=== PATIENT | male | born 1990 | race African-American/Black ===

== ENCOUNTER 2020-06-30 18:52 | Inpatient (IN) | payer MEDICAID ==
[~2020-06-30] VITALS: Ht 167.6 cm; Wt 71.7 kg
[2020-06-30] MEDS ORDERED: MORPHINE SULFATE 4 MG/ML CPJ (NOT FOR IM USE) IV STA (19:01)
[2020-06-30] MEDS ORDERED: ONDANSETRON HCL 4MG/2ML INJ IV STA (19:01)
[2020-06-30] MEDS ORDERED: SODIUM CHLORIDE 0.9% 1,000 ML IV ONE ×2 (19:15→19:45)
[2020-06-30] MEDS ORDERED: METOCLOPRAMIDE HCL 10MG/2ML VIAL IV ONE (19:45)
[2020-06-30] MEDS ORDERED: LORAZEPAM 2MG/ML CPJ IV ONE (20:00)
[2020-06-30] MEDS ORDERED: ONDANSETRON HCL 4MG/2ML INJ IV ONE (20:00)
[2020-06-30 20:25] LABS: BASOPHILS % 0.7 % (0.0-2.0); EOSINOPHILS % 0.5 % (0.0-5.0); HEMATOCRIT. 33.7 % (42.0-52.0); HEMOGLOBIN. 11.2 g/dL (14.0-18.0); LYMPHOCYTES % 18.2 % (20.0-50.0); MEAN CORPUSCULAR HEMOGLOBIN 28.1 pg (28.0-32.0); MEAN CORPUSCULAR VOLUME 84.9 fL (80.0-94.0); MEAN PLATELET VOLUME 9.7 fl (7.4-10.4); MONOCYTES % 5.5 % (2.0-8.0); NEUTROPHILS % 75.1 % (40.0-76.0); PLATELET 304 x1000/uL (130-400); RED BLOOD CELL COUNT 3.97 mill/uL (4.7-6.1); RED CELL DISTRIBUTION WIDTH 14.2 % (11.6-14.6)
[2020-06-30 20:31] LABS: CHLORIDE 109 mEq/L (98-107)
[2020-06-30 20:35] LABS: INR 0.9
[2020-06-30 20:38] LABS: ETHANOL BLOOD < 10 mg/dL
[2020-06-30 20:43] LABS: BETA HYDROXYBUTYRATE 0.5 mMol/L (0.0-0.3)
[2020-06-30] MEDS ORDERED: LABETALOL 5MG/ML SYR 20 MG/4 ML SYRINGE IV ONE ×2 (20:45→22:00)
[2020-06-30] MEDS ORDERED: MAGNESIUM/ALUMINUM HYDROXIDE/SIMETHICONE 30ML UDC PO PRN (21:45)
[2020-06-30] MEDS ORDERED: DOCUSATE SODIUM 100MG CAPSULE PO PRN (21:45)
[2020-06-30] MEDS ORDERED: KETOROLAC 15MG/ML VIAL IV PRN (21:45)
[2020-06-30] MEDS ORDERED: NITROGLYCERIN 0.4MG TABLET SL SL PRN (21:45)
[2020-06-30] MEDS ORDERED: ONDANSETRON HCL 4MG/2ML INJ IV PRN (21:45)
[2020-06-30] MEDS ORDERED: IPRATROPIUM/ALBUTEROL 0.5-3(2.5)MG/3ML NEB NEB PRN (21:45)
[2020-06-30] MEDS ORDERED: DEXTROSE 50% WATER 50ML SYRINGE IV PRN (21:45)
[2020-06-30] MEDS ORDERED: ZOLPIDEM TARTRATE 5MG TABLET PO PRN (21:45)
[2020-06-30] MEDS ORDERED: ACETAMINOPHEN 325MG TABLET PO PRN ×2 (21:45)
[2020-06-30] MEDS ORDERED: GUAIFENESIN 200MG/10ML SUGAR FREE UDC PO PRN (21:45)
[2020-06-30] MEDS ORDERED: IOHEXOL-300 100 ML BOTTLE ONE (22:23)
[2020-06-30] MEDS: AMLODIPINE 10MG TABLET PO SCH (22:47)
[2020-07-01] MEDS ORDERED: NICARDIPINE 100 MG in SODIUM CHLORIDE 0.9% 60 ML IV PRN (01:30)
[2020-07-01] MEDS: NICARDIPINE 40 MG/200 ML PREMIX 200 ML IV PRN ×2 (02:19→07:53)
[2020-07-01 02:27] LABS: TOTAL IRON BINDING CAPACITY 200 ug/dL (250-450)
[2020-07-01 02:42] LABS: FOLIC ACID (FOLATE) SERUM 18.1 ng/mL (>5.38)
[2020-07-01 05:57] LABS: BASOPHILS % 0.8 % (0.0-2.0); HEMATOCRIT. 29.5 % (42.0-52.0); HEMOGLOBIN. 9.9 g/dL (14.0-18.0); LYMPHOCYTES % 12.9 % (20.0-50.0); MEAN CORPUSCULAR HEMOGLOBIN 28.4 pg (28.0-32.0); MEAN CORPUSCULAR VOLUME 84.4 fL (80.0-94.0); MONOCYTES % 4.1 % (2.0-8.0); NEUTROPHILS % 82.2 % (40.0-76.0); PLATELET 268 x1000/uL (130-400); RED CELL DISTRIBUTION WIDTH 14.1 % (11.6-14.6)
[2020-07-01] MEDS: INSULIN LISPRO 100 UNITS/ML SUBCUT SCH ×4 (06:05→21:00)
[2020-07-01 06:13] LABS: CHLORIDE 110 mEq/L (98-107)
[2020-07-01 06:19] LABS: PHOSPHORUS 4.1 mg/dL (2.5-4.9)
[2020-07-01] MEDS: METOCLOPRAMIDE 10MG/10 ML UDC PO SCH ×2 (09:14→18:42)
[2020-07-01] MEDS: SUCRALFATE 1 G/10 ML UDC PO SCH ×3 (09:14→21:37)
[2020-07-01] MEDS: FAMOTIDINE 20MG TABLET PO SCH ×2 (09:15→21:36)
[2020-07-01] MEDS: ASPIRIN 325MG EC TABLET PO SCH (09:15)
[2020-07-01] MEDS: LISINOPRIL 20MG TABLET PO SCH ×2 (09:16→21:36)
[2020-07-01] MEDS: METOPROLOL TARTRATE 25MG TABLET PO SCH ×2 (09:34→21:36)
[2020-07-01] MEDS: AMLODIPINE 10MG TABLET PO SCH (09:34)
[2020-07-01] MEDS: NITROGLYCERIN OINT 1GM/INCH UDPKT TD SCH ×2 (11:08→21:42)
[2020-07-01 11:56] LABS: CLARITY URINE CLEAR (CLEAR); COLOR URINE YELLOW (YELLOW); KETONES URINE NEGATIVE (NEGATIVE); LEUKOCYTE ESTERASE URINE NEGATIVE (NEGATIVE); NITRITE URINE NEGATIVE (NEGATIVE); OCCULT BLOOD URINE 2+ (NEGATIVE); PROTEIN URINE 4+ (NEGATIVE); SPECIFIC GRAVITY URINE 1.033 (1.005-1.030); UROBILINOGEN URINE 0.2 E.U./dL (0.2-1.0)
[2020-07-01 12:15] LABS: *AMPHETAMINES SCREEN URINE NEGATIVE (NEGATIVE); *COCAINE SCREEN URINE NEGATIVE (NEGATIVE); METHADONE URINE SCREEN NEGATIVE (NEGATIVE); OPIATES URINE SCREEN PRESUMTIVE POSITIVE (NEGATIVE)
[2020-07-01 12:16] LABS: *BARBITURATES SCREEN URINE NEGATIVE (NEGATIVE)
[2020-07-01 12:17] LABS: *BENZODIAZEPINES SCREEN URINE NEGATIVE (NEGATIVE); CANNABINOID URINE SCREEN PRESUMTIVE POSITIVE (NEGATIVE)
[2020-07-01 12:18] LABS: PHENCYCLIDINE URINE SCREEN NEGATIVE (NEGATIVE)
[2020-07-01] MEDS: BLOOD SUGAR DIAGNOSTIC STRIP TEST SCH ×3 (14:28→21:37)
[2020-07-01 15:10] VITALS: BP 147/93
[2020-07-01] MEDS ORDERED: HUM100IN SQ ×2 (16:20→16:21)
[2020-07-01] MEDS ORDERED: AMLO10TA80 MT (16:22)
[2020-07-01] MEDS ORDERED: FURO-151 MT (16:22)
[2020-07-01] MEDS ORDERED: CARV25TA47 MT (16:22)
[2020-07-01] MEDS ORDERED: PANT40TA4 MT (16:24)
[2020-07-01] MEDS ORDERED: HYDR-4134 MT (16:24)
[2020-07-01 20:13] VITALS: BP 136/85
[2020-07-02] VITALS (7 sets, daily range): BP systolic 131–155; BP diastolic 91–104
[2020-07-02] MEDS: NITROGLYCERIN OINT 1GM/INCH UDPKT TD SCH ×3 (06:11→21:41)
[2020-07-02] MEDS: BLOOD SUGAR DIAGNOSTIC STRIP TEST SCH ×4 (06:13→21:37)
[2020-07-02] MEDS: SUCRALFATE 1 G/10 ML UDC PO SCH ×4 (06:13→21:37)
[2020-07-02] MEDS: METOCLOPRAMIDE 10MG/10 ML UDC PO SCH ×3 (06:13→16:45)
[2020-07-02] MEDS: INSULIN LISPRO 100 UNITS/ML SUBCUT SCH ×4 (06:53→21:00)
[2020-07-02] MEDS: AMLODIPINE 10MG TABLET PO SCH (08:41)
[2020-07-02] MEDS: FAMOTIDINE 20MG TABLET PO SCH ×2 (08:42→21:37)
[2020-07-02] MEDS: METOPROLOL TARTRATE 25MG TABLET PO SCH ×2 (08:42→21:37)
[2020-07-02] MEDS: LISINOPRIL 20MG TABLET PO SCH ×2 (08:42→21:37)
[2020-07-02] MEDS: ASPIRIN 325MG EC TABLET PO SCH (08:42)
[2020-07-02] MEDS: CLOPIDOGREL 75MG TABLET PO SCH (10:16)
[2020-07-02] MEDS: INSULIN GLARGINE UD 100 UNITS/ML SYR SUBCUT SCH (11:27)
[2020-07-02] MEDS: CLONIDINE 0.1MG TABLET PO PRN (12:22)
[2020-07-02 19:17] LABS: T4 FREE 0.92 ng/dL (0.76-1.46)
[2020-07-02] MEDS: ATORVASTATIN CALCIUM 40MG TABLET PO SCH (21:41)
[2020-07-03] VITALS (7 sets, daily range): BP systolic 123–183; BP diastolic 76–103
[2020-07-03] MEDS: METOCLOPRAMIDE 10MG/10 ML UDC PO SCH ×3 (06:37→16:33)
[2020-07-03] MEDS: SUCRALFATE 1 G/10 ML UDC PO SCH ×4 (06:38→21:07)
[2020-07-03] MEDS: NITROGLYCERIN OINT 1GM/INCH UDPKT TD SCH ×3 (06:38→21:11)
[2020-07-03] MEDS: BLOOD SUGAR DIAGNOSTIC STRIP TEST SCH ×4 (06:38→21:12)
[2020-07-03] MEDS: INSULIN LISPRO 100 UNITS/ML SUBCUT SCH ×4 (07:44→21:00)
[2020-07-03] MEDS: CLOPIDOGREL 75MG TABLET PO SCH (08:36)
[2020-07-03] MEDS: AMLODIPINE 10MG TABLET PO SCH (08:37)
[2020-07-03] MEDS: LISINOPRIL 20MG TABLET PO SCH ×2 (08:37→21:10)
[2020-07-03] MEDS: METOPROLOL TARTRATE 25MG TABLET PO SCH ×2 (08:37→21:11)
[2020-07-03] MEDS: FAMOTIDINE 20MG TABLET PO SCH ×2 (08:37→21:07)
[2020-07-03] MEDS: INSULIN GLARGINE UD 100 UNITS/ML SYR SUBCUT SCH (11:05)
[2020-07-03] MEDS: ATORVASTATIN CALCIUM 40MG TABLET PO SCH (21:10)
[2020-07-04] VITALS: BP 139/96
[2020-07-04] MEDS: CLONIDINE 0.1MG TABLET PO PRN (00:55)
[2020-07-04 04:00] VITALS: BP 149/98
[2020-07-04] MEDS: NITROGLYCERIN OINT 1GM/INCH UDPKT TD SCH (06:23)
[2020-07-04] MEDS: SUCRALFATE 1 G/10 ML UDC PO SCH (06:23)
[2020-07-04] MEDS: METOCLOPRAMIDE 10MG/10 ML UDC PO SCH (06:23)
[2020-07-04] MEDS: BLOOD SUGAR DIAGNOSTIC STRIP TEST SCH (06:24)
[2020-07-04] MEDS: INSULIN LISPRO 100 UNITS/ML SUBCUT SCH (07:45)
[2020-07-04 08:00] VITALS: BP 139/87
[2020-07-04] MEDS: AMLODIPINE 10MG TABLET PO SCH (10:03)
[2020-07-04] MEDS: CLOPIDOGREL 75MG TABLET PO SCH (10:03)
[2020-07-04] MEDS: LISINOPRIL 20MG TABLET PO SCH (10:04)
[2020-07-04] MEDS: FAMOTIDINE 20MG TABLET PO SCH (10:04)
[2020-07-04] MEDS: METOPROLOL TARTRATE 25MG TABLET PO SCH (10:04)
[2020-07-04] MEDS: INSULIN GLARGINE UD 100 UNITS/ML SYR SUBCUT SCH (10:12)
[2020-07-04 10:30] VITALS: BP 139/87
[2020-07-06 13:06] LABS: ANTI-THROMBIN ACTIVITY 90 % (75-135); DRVVT LA 38.7 sec (0.0-47.0); LUPUS ANTICOAG INTERPRETATION Comment: (.); PROTEIN C FUNCTIONAL 121 % (73-180); PTT-LA 36.1 sec (0.0-51.9)
[2020-07-06 17:11] LABS: ANTI-CARDIOLIPIN AB IGA < 9 APL U/mL (0-11); ANTI-CARDIOLIPIN AB IGG < 9 GPL U/mL (0-14); ANTI-CARDIOLIPIN AB IGM < 9 MPL U/mL (0-12)
== END 2020-07-04 11:12 | disposition home or self-care (01) | DRG 45 ==
LOC: ER 18:52 → ENRESERV 22:39 → CANRESERV 22:39 → 6WST 07-01 01:29 → EDBEDREQDT 07-01 01:32 → EDBEDREQTM 07-01 01:32 → EDBEDREQSVC 07-01 01:32 → EDBEDREQTM 07-01 01:33 → EDBEDREQSVC 07-01 10:37 → ENRESERV 07-01 14:01
PROVIDERS: ADMIT Internal Medicine; ATTEND Internal Medicine
DX: I63.9 Cerebral infarction, unspecified (principal); I16.1 Hypertensive emergency; G92 Toxic encephalopathy; D63.8 Anemia in other chronic diseases classified elsewhere; E11.65 Type 2 diabetes mellitus with hyperglycemia; F12.90 Cannabis use, unspecified, uncomplicated; E78.00 Pure hypercholesterolemia, unspecified; I10 Essential (primary) hypertension; R26.89 Other abnormalities of gait and mobility; E78.5 Hyperlipidemia, unspecified; R13.10 Dysphagia, unspecified; N17.9 Acute kidney failure, unspecified; Z82.49 Family history of ischemic heart disease and other diseases of the circulatory system; Z83.3 Family history of diabetes mellitus; Z79.4 Long term (current) use of insulin
CPT/HCPCS: 36415; 70551; 74177; 80053; 80061; 80305; 80320; 81003; 81400; 81403; 81407; 81479; 82010; 82140; 82607; 82746; 82962; 83036; 83540; 83550; 83605; 83735; 83880; 84100; 84439; 84443; 84481; 84484; 85025; 85300; 85303; 85306; 85613; 85732; 86147; 86850; 86900; 92523; 93005; 93306; 93880; 93970; 97110; 97116; 97161; 97166; 99291; J1815; J2060; J2270; J2405; J2765; J3490; J7030; J7050; J8597; Q9967; G0480